=== PATIENT | male | born 1980 | race Caucasian/White ===

== ENCOUNTER 2016-04-14 07:46 | Emergency (ER) | payer MEDICAID ==
[~2016-04-14] VITALS: Ht 170.2 cm; Wt 79.4 kg
[2016-04-14 07:49] VITALS: BP 124/89
--- NOTE | 2016-04-14 07:58 | NUR ---
35 YO MALE BIB EMS FROM FIELD FOR ANXIETY R/T DOING METH AND NOW COMING DOWN. DENIES N/V/D; SKIN IS PINK/WARM/DRY; AAOX4 WITH EVEN AND STEADY GAIT; LUNGS CLEAR BL; HR EVEN AND REGULAR; PT DENIES ANY FEVER, CP, SOB, OR COUGH AT THIS TIME; PATIENT STATES PAIN OF 4/10 AT THIS TIME; VSS; PATIENT POSITIONED FOR COMFORT; HOB ELEVATED; BEDRAILS UP X2; BED DOWN. ER MD MADE AWARE OF PT STATUS.
--- NOTE | 2016-04-14 08:00 | NUR ---
Patient being evaluated by physician at bedside.
--- NOTE | 2016-04-14 08:07 | NUR ---
Note undone in EDM - 04/14/16 at 0824 by BIPIN Patient discharged with v/s stable. Written and verbal after care instructions given and explained. Patient alert, oriented and verbalized understanding of instructions. Ambulatory with steady gait. All questions addressed prior to discharge. ID band removed. Patient advised to follow up with PMD. Rx of BACTRIM, KEFLEX AND MOTRIN 800MG given. Patient educated on indication of medication including possible reaction and side effects. Opportunity to ask questions provided and answered.
[2016-04-14 10:12] VITALS: BP 118/76
--- NOTE | 2016-04-14 10:12 | NUR ---
Patient discharged with v/s stable. Written and verbal after care instructions given and explained. Patient verbalized understanding. Ambulatory with steady gait. All questions addressed prior to discharge. Advised to follow up with PMD.
== END 2016-04-14 10:12 | disposition home or self-care (01) ==
LOC: MED 07:46
DX: F15.10 Other stimulant abuse, uncomplicated (principal); R44.3 Hallucinations, unspecified

== ENCOUNTER 2018-07-20 01:18 | Emergency (ER) | payer MEDICAID ==
[~2018-07-20] VITALS: Ht 180.3 cm; Wt 63.5 kg
--- NOTE | 2018-07-20 01:18 | NUR ---
[facility], PREBOOK. TAKEN TO CHAIR E
[2018-07-20 01:26] VITALS: BP 141/87
--- NOTE | 2018-07-20 01:30 | NUR ---
PT BIB [facility] FOR PREBOOK. PT STATED HE HAS NO PAIN 0/10. HE TAKES DEPAKOTE, ZYPREXA, AND SUBOXONE. PT HAS [facility] MEDNICAL HX: ASTHMA AND BIPOLAR ER MD MADE AWARE OF STATUS. SAFETY MEASURES IN PLACE, [facility] AT PT CHAIR SIDE
[2018-07-20 01:35] VITALS: BP 141/87
--- NOTE | 2018-07-20 01:35 | NUR ---
Patient discharged with v/s stable. Written and verbal after care instructions given and explained. Patient verbalized understanding. AMBULATED WITH Police with in custody. All questions addressed prior to discharge. Advised to follow up with PMD.
== END 2018-07-20 01:35 ==
LOC: MED 01:18
DX: Z02.89 Encounter for other administrative examinations (principal); F31.9 Bipolar disorder, unspecified
CPT/HCPCS: 99283

== ENCOUNTER 2022-01-26 19:47 | Emergency (ER) | payer MEDICAID ==
[~2022-01-26] VITALS: Ht 170.2 cm; Wt 63.5 kg
[~2022-01-26 19:47] MED LIST: DIPH25TA53 PO; DIVA250E1 PO; SERT25TA PO
[2022-01-26 19:59] VITALS: BP 153/64
--- NOTE | 2022-01-26 19:59 | NUR ---
[facility] B[facility] TO BED #6. [place] [facility] AT BEDSIDE.
--- NOTE | 2022-01-26 20:31 | NUR ---
LABS DRAWN AND SENT TO LAB
[2022-01-26 20:35] LABS: BASOPHILS % (AUTO) 0.3 % (0.0-2.0); EOSINOPHILS # (AUTO) 0.1 K/uL (0-0.4); EOSINOPHILS % (AUTO) 1.9 % (0.0-4.0); HEMATOCRIT 42.7 % (36-52); HEMOGLOBIN 14.7 g/dL (12.0-18.0); LYMPHOCYTES # (AUTO) 3.3 K/uL (2.0-11.5); LYMPHOCYTES % (AUTO) 47.4 % (20.5-51.1); MEAN CORPUSCULAR HEMOGLOBIN 30 pg (27-31); MEAN CORPUSCULAR HGB CONC 34 g/dL (33-37); MEAN CORPUSCULAR VOLUME 88.1 fL (80-94); MONOCYTES # (AUTO) 0.8 K/uL (0.8-1.0); NEUTROPHILS # (AUTO) 2.8 K/uL (1.8-7.7); NEUTROPHILS % (AUTO) 39.4 % (42.2-75.2); PLATELET COUNT (AUTO) 220 K/uL (140-450); RED BLOOD CELL COUNT(AUTO) 4.85 MIL/uL (4.20-6.10); RED CELL DISTRIBUTION WIDTH 13.7 % (11.6-13.7); WHITE BLOOD COUNT (AUTO) 7.1 K/uL (4.8-10.8)
--- NOTE | 2022-01-26 20:41 | NUR ---
41YR OLD MALE BIB EMS C/O OVERDOSE/5150. PT PLACED ON A 5150 BY [facility]. PT IS A&0X4. WHEN ASKED IF HE WANTED TO KILL HIMSELF PATIENT STATED" NO I WASNT TRYING TO KILL MYSELF, JOSE BEEN GOING THROUGH IT LATELY AND I DID A BUNCH OF DRUGS AND WOKE UP IN A AMBULANCE" PT ANSWERING ALL QUESTIONS APPRIOPATELY. SKIN WARM DRY AND INTACT. ALL ITEMS REMOVED FROM ROOM FOR PTS SAFETY. PT IN GOWN SIDE RAILS UP X2. BED AT LOWEST POSITION. NKDA ADHD SCHZO
[2022-01-26 21:00] LABS: ALBUMIN 3.1 g/dL (3.4-5.0); ASPARTATE AMINOTRANSFERASE 87 U/L (15-37); CARBON DIOXIDE 29.2 mmol/L (21-32); CHLORIDE 102 mmol/L (98-107); CREATININE 0.7 mg/dL (0.6-1.3); GFR ARICAN-AMERICAN 161 mL/min (>90); GLUCOSE 102 mg/dL (74-106); POTASSIUM 3.2 mmol/L (3.5-5.1); SODIUM SERUM 142 mmol/L (136-145); TOTAL BILIRUBIN 0.2 mg/dL (0.0-1.0)
[2022-01-26 21:10] LABS: UREA NITROGEN, BLOOD 17 mg/dL (7-18)
[2022-01-26 21:20] LABS: SALICYLATE < 2.8 mg/dL (2.8-20.0)
[2022-01-26 21:31] LABS: BARBITURATE, URINE NEGATIVE ng/ml (NEG <=200); BENZODIAZEPINE, URINE NEGATIVE ng/mL (NEG <=200); CANNABINOID, URINE NEGATIVE ng/mL (NEG <=50); COCAINE, URINE NEGATIVE ng/mL (NEG <=300); OPIATE, URINE NEGATIVE ng/mL (NEG <=2000); PHENCYCLIDINE SCREEN,URINE NEGATIVE ng/mL (NEG <=25)
--- NOTE | 2022-01-26 22:42 | NUR ---
COVID SWABS COLLECTED AND SENT
--- NOTE | 2022-01-27 03:26 | NUR ---
PT IS SLEEPING RESP EVEN AND UNLABORED. SIDE RAILS UP X 2. BED AT LOWEST POSITION
--- NOTE | 2022-01-27 04:08 | NUR ---
CALL OUT TO DR COLE FOR TELEPYSC CONS. WILL RETURN CALL WHEN AVAIL
--- NOTE | 2022-01-27 04:11 | NUR ---
TELEPSYCH APPT SET FOR [id number] COLE.
--- NOTE | 2022-01-27 06:14 | NUR ---
PT ASLEEP. RESP EVEN AND UNLABORED. PT IS AMBULATORY TO BATHROOM. HAS SLEPT DURING THE NIGHT. PENDING TELEPSYCH EVAL
--- NOTE | 2022-01-27 07:15 | NUR ---
REPORT RECEIVED FROM GEOFFREY RODRIGUEZ. ASSUMED CARE AT THIS TIME
--- NOTE | 2022-01-27 07:17 | NUR ---
pt at rest w/ eyes closed. in view, bed at lowest position, bed rails upx2. pending telepsych
--- NOTE | 2022-01-27 07:28 | NUR ---
PT ON TELEPSYCH CALL W/ MD COLE
--- NOTE | 2022-01-27 07:30 | NUR ---
PT RECOMMENDED FOR TX PER MD COLE
--- NOTE | 2022-01-27 08:06 | NUR ---
pt provided with breakfast. pt awake and eating in bed
[2022-01-27] MEDS: DIVALPROEX 250 MG TABEC PO SCH ×2 (09:35→21:36)
--- NOTE | 2022-01-27 19:30 | NUR ---
REPORT GIVEN TO GEOFFREY RODRIGUEZ. TRANSFER OF CARE AT THIS TIME
[2022-01-27] MEDS ORDERED: OLANZapine 5 MG ODT PO SCH (21:00)
[2022-01-27] MEDS ORDERED: DIVALPROEX 500 MG TABEC PO ONE (21:28)
[2022-01-27] MEDS ORDERED: OLANZapine 5 MG TAB ONE (21:29)
--- NOTE | 2022-01-27 21:30 | NUR ---
PT IS ASLEEP Q15 SI CHECKS SIDE RAILS UP X2 BED AT LOWEST POSITION
--- NOTE | 2022-01-27 21:42 | NUR ---
PT EATING. DENIES PAIN. ACTING APPROPRIATELY.
--- NOTE | 2022-01-28 01:33 | NUR ---
PT IS ASLEEP RESP EVEN AND UNLABORED. PT IN VIEW FROM NURSING STATION. BED AT LOWEST POSITION SIDE RAILS UP X2
--- NOTE | 2022-01-28 04:28 | NUR ---
PT ASLEEP RESP EVEN AND UNLABORED. SIDE RAILS UP X2 BED AT LOWEST POSITION
--- NOTE | 2022-01-28 09:14 | NUR ---
PT HAVING BREAKFAST IN BED.
--- NOTE | 2022-01-28 09:25 | NUR ---
PT ON TELEPSYCH CALL W/ MD COLE.
--- NOTE | 2022-01-28 09:30 | NUR ---
PER DR COLE VERBAL ORDER HE IS GOING TO CLEAR THE PT BUT IT WILL TAKE HIM AT LEAST 2-3 HOUR BEFORE HE CAN PUT IN HIS OFFICIAL ORDERS IN THE COMPUTER.
[2022-01-28] MEDS: DIVALPROEX 250 MG TABEC PO SCH (09:33)
[2022-01-28 13:46] VITALS: BP 163/96
== END 2022-01-28 13:46 | disposition home or self-care (01) ==
LOC: MED 19:47
DX: F15.129 Other stimulant abuse with intoxication, unspecified (principal); Z20.822 Contact with and (suspected) exposure to COVID-19; F32.9 Major depressive disorder, single episode, unspecified; R45.851 Suicidal ideations; F20.9 Schizophrenia, unspecified; I10 Essential (primary) hypertension; F17.200 Nicotine dependence, unspecified, uncomplicated; Z79.899 Other long term (current) drug therapy
CPT/HCPCS: 36415; 80053; 80305; 85025; 87426; 87635; 93005; 99285; C9803; G0480; G0482